=== PATIENT | male | born 1945 | race Caucasian/White ===

== ENCOUNTER 2018-06-10 20:20 | Inpatient (IN) | payer OTHER ==
[~2018-06-10] VITALS: Ht 188 cm; Wt 77.1 kg
--- NOTE | ~2018-06-10 | EKG ---
[address] [address] ELECTROCARDIOGRAM REPORT Name: ERLIN ARECHIGA Room #: 213-[facility] .R.#: [id number] Admission: 06/10/18 Attend Phys: Wilmar Garrido MD Discharge: 06/11/18 Date of : 47 Report #: [id number] THIS REPORT FOR: //name// [facility] ED Test Date: 2018-06-10 Test Time: 20:27:32 Pat Name: ERLIN ARECHIGA Department: Room: [facility] Gender: M English Division Chair: MICHELL : 1945 Requested By: Jammie Mejias Order Number: [id number] MD: Deepak Chaparro Measurements Intervals [place] Rate: 107 P: [place]: QRS: -9 QRSD: 82 T: 23 QT: 363 QTc: 485 Interpretive Statements Atrial fibrillation Compared to ECG 04/08/2013 09:48:45 Sinus rhythm no longer present Atrial premature complex(es) no longer present Electronically Signed On 06-14-2018 17:05:29 CDT by Deepak Chaparro [email or web address] <ELECTRONICALLY SIGNED> By: Deepak Chaparro MD 06/14/18 1705 26 26 Deepak Chaparro MD /EPI
[~2018-06-10 20:20] MED LIST: AMANTADINE100 M1 PO; AMBIEN 10 MG TA10 MG PO; AUGMENTIN 875875 M1 PO; AVELOX ABC PAC400 MG PO; B12INJ; B12INJ IM; CARAFATE 11 GM/10 M1 PO; CEPHALEXIN 500500 M3 PO; CLARITIN-D 12 H1 TA2 PO; CLARITIN-D 12 H1 TAB PO; COMPAZINE10 MG PO; COUMADIN 2 MG TA2 M1; DESYREL50 MG PO; DOXYCYCLINE 10100 MG PO; DURAGESIC1 EAC2 TRANSDERM; FENTANYL PA25 MCG/HR TRANSDERM; HORIZANT600 MG PO; HYDROCODON-ACE1 EA14; HYDROCODON-ACE1 EACH; HYDROCODON-ACE1 EACH PO; Ipratr-Albuterol 0.5-3 Mg/3 Ml INH; K-DUR 20 MEQ T20 MEQ PO; LIBRIUM10 MG PO; LYRICA 75 MG CA75 MG PO; LYRICA100 MG; MAG DELAY64 MG PO; MEDROL DOSPAK21 TA1; MUCINEX D TABL1 EAC1 PO; MUCINEX DM TABL1 TA1 PO; NAPROSYN500 MG PO; NEURONTIN 300300 M1 PO; NEURONTIN600 MG PO; NEXIUM 40 MG CA40 M1 PO; NEXIUM2.5 MG; NEXIUM40 MG PO; NORCO 10-325 T1 EACH PO; NORCO 5-325 TA1 EACH; NORCO 5-325 TA1 EACH PO; NORCO 7.5-3251 EACH PO; OMEPRAZOLE PO; PAROXETINE HCL20 MG PO; PAXIL 20 MG TAB20 M1 PO; PAXIL10 MG PO; PAXIL20 MG PO; PRENATAL PO; PRILOSEC40 MG PO; PROTONIX40 M2 PO; RANITIDINE 150150 MG PO; TAMIFLU PO; TRAMADOL 50 MG50 MG; TRAMADOL 50 MG50 MG PO; TRAZODONE 150150 M1 PO; Trazodone Hcl PO; ULTRACET TABLE1 EACH PO; ULTRAM 50MG TAB50 MG PO; VITAMIN B 6 PO; VITAMIN B-1100 M1 PO; VITAMIN B-12100 MC1 IM; VITAMIN D35000 UNI1 PO; VITAMIN D400 UNI1 PO; VITAMIN E400 UNI7 PO; VITAMIN E800 UNIT PO; WARFARIN SODIUM; XANAX 1 MG TABLE1 MG PO; XARELTO10 M1 PO; ZINC SULFATE 2220 M1 PO; ZOFRAN ODT4 MG PO; [UNRECOGNIZED DRUG - OTHER] PO; [UNRECOGNIZED DRUG - OTHER] PO; [UNRECOGNIZED DRUG - REMARK]
[2018-06-10 20:29] VITALS: BP 124/90
[2018-06-10 21:15] LABS: ABSOLUTE NEUTROPHILS 7.9 thou/uL (1.4-8.2); BASOPHILS 1.4 % (0.0-2.0); EOSINOPHILS 0.1 % (0.0-3.0); HEMATOCRIT 51.9 % (42.0-52.0); HEMOGLOBIN 17.6 gm/dL (14.0-18.0); LYMPHOCYTES 7.2 % (24.0-44.0); MCH 32.2 pg (26.0-34.0); MCV 94.6 fL (80.0-100.0); MONOCYTES 6.8 % (1.0-8.0); PLATELET COUNT 198 thou/uL (150-400); POLYS 84.5 % (36.0-66.0); RBC 5.49 mil/uL (4.50-6.00); RDW 13.9 % (10.5-14.5); WBC 9.4 thou/uL (4.0-11.0)
[2018-06-10 21:26] LABS: ANION GAP 14 mmol/L (7-16); BUN 13 mg/dL (7-18); CALCIUM 9.2 mg/dL (8.5-10.1); CHLORIDE 101 mmol/L (98-107); CO2 26 mmol/L (21-32); CREATININE 1.3 mg/dL (0.7-1.3); GLUCOSE 105 mg/dL (74-106); POTASSIUM 3.9 mmol/L (3.5-5.1); SODIUM 141 mmol/L (136-145)
[2018-06-10 21:32] LABS: TROPONIN-I <0.06 ng/mL (<0.06)
[2018-06-10 22:11] VITALS: BP 137/93
[2018-06-10 22:22] VITALS: BP 137/93
[2018-06-10 22:58] VITALS: BP 129/93
[2018-06-11] MEDS ORDERED: OXYCODONE HCL 55 MG PO (04:18)
[2018-06-11] MEDS ORDERED: NEURONTIN 300300 M1 PO (04:18)
[2018-06-11] MEDS ORDERED: TRAZODONE HCL50 MG PO (04:19)
[2018-06-11] MEDS ORDERED: FOLIC ACID1 MG PO (04:19)
[2018-06-11] MEDS ORDERED: REMERON15 MG PO (04:19)
[2018-06-11 04:55] VITALS: BP 135/87
[2018-06-11 08:40] VITALS: BP 141/98
[2018-06-11] MEDS ORDERED: PACERONE 200 M200 M1 PO (10:04)
[2018-06-11] MEDS ORDERED: CARDIZEM CD 18180 M3 PO (10:05)
[2018-06-11 10:34] VITALS: BP 141/98
== END 2018-06-11 13:00 | disposition home or self-care (01) | DRG 308 ==
LOC: ER 20:20 → 2N 21:59 → EROBS 21:59 → 2N 22:23 → ENTRNSPT 06-11 13:17 → EDTRNSPTSTS 06-11 13:20
PROVIDERS: Student in an Organized Health Care Education/Training Program
DX: I48.0 Paroxysmal atrial fibrillation (principal); E43 Unspecified severe protein-calorie malnutrition; C15.9 Malignant neoplasm of esophagus, unspecified; F32.9 Major depressive disorder, single episode, unspecified; K21.9 Gastro-esophageal reflux disease without esophagitis; Z96.642 Presence of left artificial hip joint; G62.9 Polyneuropathy, unspecified; F12.90 Cannabis use, unspecified, uncomplicated; F17.210 Nicotine dependence, cigarettes, uncomplicated; I10 Essential (primary) hypertension; F10.229 Alcohol dependence with intoxication, unspecified; J44.9 Chronic obstructive pulmonary disease, unspecified; M19.90 Unspecified osteoarthritis, unspecified site; G47.00 Insomnia, unspecified; Z88.1 Allergy status to other antibiotic agents; Z88.8 Allergy status to other drugs, medicaments and biological substances; Z85.819 Personal history of malignant neoplasm of unspecified site of lip, oral cavity, and pharynx; Z82.49 Family history of ischemic heart disease and other diseases of the circulatory system; Z80.3 Family history of malignant neoplasm of breast; Z79.899 Other long term (current) drug therapy
CPT/HCPCS: 10081

== ENCOUNTER 2018-07-21 20:35 | Emergency (ER) | payer OTHER ==
[~2018-07-21] VITALS: Ht 188 cm; Wt 81.7 kg
--- NOTE | ~2018-07-21 | EKG ---
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 : 1945 Requested By: Jammie Mejias Order Number: [id number] MD: Say Davis Measurements Intervals [place] Rate: 63 P: 60 FL: 221 QRS: -11 QRSD: 100 T: 10 QT: 448 QTc: 459 Interpretive Statements Sinus rhythm Prolonged FL interval Borderline low voltage, extremity leads Probable anteroseptal infarct, old Compared to ECG 06/10/2018 20:27:32 Sinus rhythm has replaced atrial fibrillation Electronically Signed On 07-22-2018 8:52:13 CDT by Say Davis [email or web address] <ELECTRONICALLY SIGNED> By: Say Davis MD, [facility] 07/22/18 0852 13 13 Say Davis MD, [facility] /EPI
[~2018-07-21 20:35] MED LIST changes: +CARDIZEM CD 18180 M3 PO; +FOLIC ACID1 MG PO; +OXYCODONE HCL 55 MG PO; +PACERONE 200 M200 M1 PO; +REMERON15 MG PO; +TRAZODONE HCL50 MG PO
[2018-07-21 20:40] VITALS: BP 100/68
[2018-07-21] MEDS ORDERED: ONDANSETRON HCL8 M2 PO (20:48)
[2018-07-21] MEDS ORDERED: MS CONTIN15 MG PO (20:49)
[2018-07-21] MEDS ORDERED: CYMBALTA30 MG PO (20:50)
[2018-07-21 21:17] LABS: HEMATOCRIT 42.7 % (42.0-52.0); HEMOGLOBIN 14.6 gm/dL (14.0-18.0); MCH 32.4 pg (26.0-34.0); MCHC 34.2 g/dL (28.0-37.0); MCV 94.9 fL (80.0-100.0); PLATELET COUNT 223 thou/uL (150-400); WBC 5.7 thou/uL (4.0-11.0)
[2018-07-21 21:26] LABS: ANION GAP 8 mmol/L (7-16); BUN 6 mg/dL (7-18); CALCIUM 8.4 mg/dL (8.5-10.1); CHLORIDE 102 mmol/L (98-107); CO2 29 mmol/L (21-32); CREATININE 1.1 mg/dL (0.7-1.3); GLUCOSE 92 mg/dL (74-106); POTASSIUM 3.9 mmol/L (3.5-5.1); SODIUM 139 mmol/L (136-145)
[2018-07-21 21:35] LABS: TROPONIN-I <0.06 ng/mL (<0.06)
[2018-07-21 21:38] LABS: ABSOLUTE NEUTROPHILS 3.9 thou/uL (1.4-8.2); ANISOCYTOSIS 1+; POLYCHROMASIA OCCASIONAL
[2018-07-21 23:27] LABS: BE(vivo) -3.8 mmol/L (-2 to +3); HCO3 22.3 mmol/L (22.0-26.0); PCO2 44.2 mmHg (35.0-45.0); PO2 72.1 mmHg (80.0-100.0); sO2 93.3 % (92.0-98.0)
[2018-07-22] MEDS ORDERED: VIBRAMYCIN 100100 M2 PO (00:09)
== END 2018-07-22 08:00 | disposition home or self-care (01) ==
LOC: ER 20:35
PROVIDERS: Physician Assistant; Student in an Organized Health Care Education/Training Program
DX: F10.129 Alcohol abuse with intoxication, unspecified (principal); J18.9 Pneumonia, unspecified organism; R41.82 Altered mental status, unspecified; R09.02 Hypoxemia; K21.9 Gastro-esophageal reflux disease without esophagitis; I48.0 Paroxysmal atrial fibrillation; G62.9 Polyneuropathy, unspecified; F17.210 Nicotine dependence, cigarettes, uncomplicated; Z85.01 Personal history of malignant neoplasm of esophagus; Z85.810 Personal history of malignant neoplasm of tongue; Z96.642 Presence of left artificial hip joint; Z87.19 Personal history of other diseases of the digestive system; Z88.1 Allergy status to other antibiotic agents; Z88.8 Allergy status to other drugs, medicaments and biological substances